=== PATIENT | female | born 1990 | race American Indian/Alaskan Native ===

== ENCOUNTER 2016-12-19 21:23 | Outpatient (CLI) | payer SELFPAY ==
[2016-12-19] MEDS ORDERED: LACTATED RINGERS 1,000 ML IV ONE (21:27)
[2016-12-19 21:47] VITALS: BP 97/59
[2016-12-19 22:12] LABS: Bilirubin,Urine NEG (Negative); Blood,Urine NEG (Negative); Ketones,Urine TR mg/dL (Negative); Leukocyte Esterase,Urine TR (Negative); Mucus,Urine 3+ /HPF; Nitrite,Urine NEG (Negative)
== END 2016-12-19 22:30 | disposition home or self-care (01) ==
LOC: TRG 21:23
PROVIDERS: ATTEND Obstetrics & Gynecology Gynecology
DX: O47.02 False labor before 37 completed weeks of gestation, second trimester (principal); Z3A.20 20 weeks gestation of pregnancy
CPT/HCPCS: 81001

== ENCOUNTER 2017-03-24 01:24 | Outpatient (CLI) | payer SELFPAY ==
[2017-03-24] MEDS ORDERED: LACTATED RINGERS 1,000 ML IV ONE (01:58)
[2017-03-24 03:12] LABS: Bacteria,Urine 2+ /HPF (Negative); Bilirubin,Urine NEG (Negative); Blood,Urine SM (Negative); Ketones,Urine 80 mg/dL (Negative); Leukocyte Esterase,Urine MOD (Negative); Mucus,Urine 3+ /HPF; Nitrite,Urine NEG (Negative); WBC,Urine > 182.0 /HPF (0.0-6.0)
[2017-03-24 03:18] VITALS: BP 97/55
[2017-03-24] MEDS ORDERED: TYLENOL PO ONE (03:43)
[2017-03-24 04:49] LABS: HIV-1 Antigen p24 Non React (Non React); HIVR-1/2 Ab Non React (Non React)
== END 2017-03-24 04:05 | disposition home or self-care (01) ==
LOC: TRG 01:24
PROVIDERS: ATTEND Obstetrics & Gynecology
DX: O47.03 False labor before 37 completed weeks of gestation, third trimester (principal); Z87.891 Personal history of nicotine dependence; Z3A.34 34 weeks gestation of pregnancy
CPT/HCPCS: 36415; 59025; 81001; 86592; 86706; 86762; 86803; 86850; 86900; 86901; 87806; 96360; J7120

== ENCOUNTER 2018-03-13 08:56 | Emergency (ER) | payer MEDICAID ==
[2018-03-13 09:03] VITALS: BP 92/57
[2018-03-13] MEDS ORDERED: TORADOL IM ONE (10:52)
--- NOTE | 2018-03-13 10:58 | Emergency Department Report ---
ED ENT HPI - General Chief complaint: Dental/Oral Stated complaint: TOOTH ACHE Time Seen by Provider: 03/13/18 10:16 Source: patient Mode of arrival: Ambulatory Limitations: No Limitations - History of Present Illness Initial comments: This is a 27-year-old male nontoxic, well nourished in appearance, no acute signs of distress presents to the ED with c/o of left upper toothache 3 weeks. Patient denies following up with a dentist. Patient stated that pain radiates from his job to his left side of head. Patient otherwise denies any head trauma. Patient describes toothache as aching level of 8 out of 10. Patient denies any facial swelling. Patient denies any numbness, tingling, fever, chills, headache, stiff neck, abdominal pain, chest pain, shortness of breath. Patient denies any drug allergies or significant past medical history. MD complaint: tooth pain -: week(s) (3) Location: tooth # 1 - pain here Severity: mild Severity scale (0 -10): 8 Quality: aching Consistency: constant Improves with: none Worsens with: none Context- Dental: history of dental caries, poor dental care Associated Symptoms: gum swelling, toothache. denies: fever, cough, pain with swallowing, sore throat, tinnitus, hearing loss, discharge from ear, rhinorrhea - Related Data Previous Rx's Medication Instructions Recorded Last Taken Type Pantoprazole Sodium [Protonix] 40 mg PO DAILY #30 tablet. 10/02/14 Unknown Rx Ciprofloxacin HCl [Ciprofloxacin 500 mg PO Q12H #4 tab 10/03/14 Unknown Rx TAB] Nitrofurantoin [place]/M-Cryst 100 mg PO Q12HR #14 capsule 12/19/16 Unknown Rx [Macrobid CAP] Acetaminophen/Codeine [Tylenol 1 tab PO Q6H PRN #12 tab 03/13/18 Unknown Rx /Codeine # 3 tab] Amoxicillin/K Clav Tab [Augmentin 1 tab PO Q12HR #20 tab 03/13/18 Unknown Rx 875 mg] Chlorhexidine Mouthwash [Peridex] 15 ml MM BID #1 bottle 03/13/18 Unknown Rx Ibuprofen [Motrin] 600 mg PO Q8H PRN #30 tablet 03/13/18 Unknown Rx Allergies Allergy/AdvReac Type Severity Reaction Status Date / Time No Known Allergies Allergy Verified 10/01/14 01:57 ED Dental HPI - General Chief complaint: Dental/Oral Stated complaint: TOOTH ACHE Time Seen by Provider: 03/13/18 10:16 Source: patient Mode of arrival: Ambulatory Limitations: No Limitations - Related Data Previous Rx's Medication Instructions Recorded Last Taken Type Pantoprazole Sodium [Protonix] 40 mg PO DAILY #30 tablet. 10/02/14 Unknown Rx Ciprofloxacin HCl [Ciprofloxacin 500 mg PO Q12H #4 tab 10/03/14 Unknown Rx TAB] Nitrofurantoin [place]/M-Cryst 100 mg PO Q12HR #14 capsule 12/19/16 Unknown Rx [Macrobid CAP] Acetaminophen/Codeine [Tylenol 1 tab PO Q6H PRN #12 tab 03/13/18 Unknown Rx /Codeine # 3 tab] Amoxicillin/K Clav Tab [Augmentin 1 tab PO Q12HR #20 tab 03/13/18 Unknown Rx 875 mg] Chlorhexidine Mouthwash [Peridex] 15 ml MM BID #1 bottle 03/13/18 Unknown Rx Ibuprofen [Motrin] 600 mg PO Q8H PRN #30 tablet 03/13/18 Unknown Rx Allergies Allergy/AdvReac Type Severity Reaction Status Date / Time No Known Allergies Allergy Verified 10/01/14 01:57 ED Review of Systems ROS: Stated complaint: TOOTH ACHE Other details as noted in HPI Constitutional: denies: chills, fever Eyes: denies: eye pain, eye discharge, vision change ENT: dental pain. denies: ear pain, throat pain Respiratory: denies: cough, shortness of breath, wheezing Cardiovascular: denies: chest pain, palpitations Endocrine: no symptoms reported Gastrointestinal: denies: abdominal pain, nausea, diarrhea Genitourinary: denies: urgency, dysuria, discharge Musculoskeletal: denies: back pain, joint swelling, arthralgia Skin: denies: rash, lesions Neurological: denies: headache, weakness, paresthesias Psychiatric: denies: anxiety, depression Hematological/Lymphatic: denies: easy bleeding, easy bruising ED Past Medical Hx - Past Medical History Hx Hypertension: No Hx Diabetes: No Hx Deep Vein Thrombosis: No Hx Renal Disease: No Hx Sickle Cell Disease: No Hx Seizures: No Hx Asthma: No Hx HIV: No Additional medical history: GI BLEED? - Social History Smoking Status: Current Every Day Smoker Substance Use Type: None - Medications Home Medications: Home Medications Medication Instructions Recorded Confirmed Last Taken Type Pantoprazole Sodium [Protonix] 40 mg PO DAILY #30 tablet. 10/02/14 Unknown Rx Ciprofloxacin HCl [Ciprofloxacin 500 mg PO Q12H #4 tab 10/03/14 Unknown Rx TAB] Nitrofurantoin [place]/M-Cryst 100 mg PO Q12HR #14 capsule 12/19/16 Unknown Rx [Macrobid CAP] Acetaminophen/Codeine [Tylenol 1 tab PO Q6H PRN #12 tab 03/13/18 Unknown Rx /Codeine # 3 tab] Amoxicillin/K Clav Tab [Augmentin 1 tab PO Q12HR #20 tab 03/13/18 Unknown Rx 875 mg] Chlorhexidine Mouthwash [Peridex] 15 ml MM BID #1 bottle 03/13/18 Unknown Rx Ibuprofen [Motrin] 600 mg PO Q8H PRN #30 tablet 03/13/18 Unknown Rx ED Physical Exam - General Limitations: No Limitations General appearance: alert, in no apparent distress - Head Head exam: Present: atraumatic, normocephalic - Eye Eye exam: Present: normal appearance Pupils: Present: normal accommodation - ENT ENT exam: Present: mucous membranes moist, TM's normal bilaterally, normal external ear exam - Expanded ENT Exam Expanded Ear exam: Present: normal external inspection Mouth exam: Present: normal external inspection, tongue normal. Absent: drooling, trismus, muffled voice, tongue elevation, laceration Teeth exam: Present: dental caries, fractured tooth #, dental tenderness #, gingival enlargement, other (no facial swelling) Throat exam: Positive: normal inspection, other (Uvula midline). Negative: tonsillar erythema, tonsillomegaly, tonsillar exudate, R peritonsillar mass, L peritonsillar mass - Neck Neck exam: Present: normal inspection, full ROM. Absent: tenderness, meningismus, lymphadenopathy - Respiratory Respiratory exam: Present: normal lung sounds bilaterally. Absent: respiratory distress - Cardiovascular Cardiovascular Exam: Present: regular rate, normal rhythm. Absent: systolic murmur, diastolic murmur, rubs, gallop - GI/Abdominal GI/Abdominal exam: Present: soft, normal bowel sounds - Extremities Exam Extremities exam: Present: normal inspection - Back Exam Back exam: Present: normal inspection - Neurological Exam Neurological exam: Present: alert, oriented X3 - Psychiatric Psychiatric exam: Present: normal affect, normal mood - Skin Skin exam: Present: warm, dry, intact, normal color. Absent: rash ED Course Vital Signs 03/13/18 09:00 Temperature 98.2 F Pulse Rate 84 Respiratory 16 Rate Blood Pressure 92/57 O2 Sat by Pulse 99 Oximetry - Reevaluation(s) Reevaluation #1: 03/13/18 11:06 Patient is speaking in full sentences with no signs of distress noted. Critical care attestation.: If time is entered above; I have spent that time in minutes in the direct care of this critically ill patient, excluding procedure time. ED Disposition Clinical Impression: Dental caries, Gingivitis Disposition: - TO HOME OR SELFCARE Is pt being admited?: No Does the pt Need Aspirin: No Condition: Stable Instructions: Dental Caries (ED), Gingivitis (ED), Acetaminophen/Codeine (By mouth) Additional Instructions: Follow-up with a dentist doctor in 3-5 days or if symptoms worsen and continue return to emergency room as soon as possible. Do not operate any machinery while taking Tylenol with codeine as this may cause drowsiness. Prescriptions: Acetaminophen/Codeine [Tylenol /Codeine # 3 tab] 1 tab PO Q6H PRN #12 tab PRN Reason: Pain , Severe (7-10) Amoxicillin/K Clav Tab [Augmentin 875 mg] 1 tab PO Q12HR #20 tab Chlorhexidine Mouthwash [Peridex] 15 ml MM BID #1 bottle Ibuprofen [Motrin] 600 mg PO Q8H PRN #30 tablet PRN Reason: Pain Referrals: PRIMARY CARE, [Primary Care Provider] - 3-5 Days PETERSON HUDSON MD [Staff Physician] - 3-5 Days [facility] [Outside] - 3-5 Days [facility] [Outside] - 3-5 Days Forms: Work/School Release Form(ED)
== END 2018-03-13 11:26 | disposition home or self-care (01) ==
LOC: ED 08:56
DX: K02.9 Dental caries, unspecified (principal); K05.10 Chronic gingivitis, plaque induced; F17.200 Nicotine dependence, unspecified, uncomplicated
CPT/HCPCS: 96372; 99281; J1885

== ENCOUNTER 2019-04-18 09:38 | Emergency (ER) | payer MEDICAID, OTHER ==
[2019-04-18 09:53] VITALS: BP 104/67
[2019-04-18] MEDS ORDERED: ZOFRAN ODT PO ONE (11:35)
[2019-04-18] MEDS ORDERED: NORCO 10/325 PO ONE (11:35)
--- NOTE | 2019-04-18 11:51 | Emergency Department Report ---
ED General Adult HPI - General Chief complaint: Dental/Oral Stated complaint: TOOTHACHE Time Seen by Provider: 04/18/19 11:21 Source: patient Mode of arrival: Ambulatory Limitations: No Limitations - History of Present Illness Initial comments: Patient complains of left upper molar pain 2 weeks. Patient states she has a dental appointment in June. Patient states the pain is worse at night and describes it as throbbing. Denies any issues with drinking or swallowing. -: Gradual Location: mouth Severity scale (0 -10): 8 Quality: other (throbbing) Consistency: constant Improves with: none Worsens with: none Associated Symptoms: denies other symptoms Treatments Prior to Arrival: none - Related Data Previous Rx's Medication Instructions Recorded Last Taken Type Pantoprazole Sodium [Protonix] 40 mg PO DAILY #30 tablet. 10/02/14 Unknown Rx Ciprofloxacin HCl [Ciprofloxacin 500 mg PO Q12H #4 tab 10/03/14 Unknown Rx TAB] Nitrofurantoin [place]/M-Cryst 100 mg PO Q12HR #14 capsule 12/19/16 Unknown Rx [Macrobid CAP] Acetaminophen/Codeine [Tylenol 1 tab PO Q6H PRN #12 tab 03/13/18 Unknown Rx /Codeine # 3 tab] Amoxicillin/K Clav Tab [Augmentin 1 tab PO Q12HR #20 tab 03/13/18 Unknown Rx 875 mg] Chlorhexidine Mouthwash [Peridex] 15 ml MM BID #1 bottle 03/13/18 Unknown Rx Ibuprofen [Motrin] 600 mg PO Q8H PRN #30 tablet 03/13/18 Unknown Rx Amoxicillin [Trimox CAP] 500 mg PO Q8H #21 capsule 04/18/19 Unknown Rx HYDROcodone/APAP 5-325 [[place] 1 each PO Q6HR PRN #12 tablet 04/18/19 Unknown Rx 5/325] traMADol [Ultram] 50 mg PO Q6HR PRN #24 tablet 04/18/19 Unknown Rx Allergies Allergy/AdvReac Type Severity Reaction Status Date / Time No Known Allergies Allergy Verified 10/01/14 01:57 ED Review of Systems ROS: Stated complaint: TOOTHACHE Other details as noted in HPI Constitutional: denies: chills, fever Eyes: denies: eye pain, eye discharge, vision change ENT: dental pain. denies: ear pain, throat pain Respiratory: denies: cough, shortness of breath, wheezing Cardiovascular: denies: chest pain, palpitations Endocrine: no symptoms reported Gastrointestinal: denies: abdominal pain, nausea, diarrhea Genitourinary: denies: urgency, dysuria, discharge Musculoskeletal: denies: back pain, joint swelling, arthralgia Skin: denies: rash, lesions Neurological: denies: headache, weakness, paresthesias Psychiatric: denies: anxiety, depression Hematological/Lymphatic: denies: easy bleeding, easy bruising ED Past Medical Hx - Past Medical History Hx Hypertension: No Hx Diabetes: No Hx Deep Vein Thrombosis: No Hx Renal Disease: No Hx Sickle Cell Disease: No Hx Seizures: No Hx Asthma: No Hx HIV: No Additional medical history: GI BLEED? - Surgical History Past Surgical History?: Yes Additional Surgical History: - Social History Smoking Status: Former Smoker Substance Use Type: None - Medications Home Medications: Home Medications Medication Instructions Recorded Confirmed Last Taken Type Pantoprazole Sodium [Protonix] 40 mg PO DAILY #30 tablet. 10/02/14 Unknown Rx Ciprofloxacin HCl [Ciprofloxacin 500 mg PO Q12H #4 tab 10/03/14 Unknown Rx TAB] Nitrofurantoin [place]/M-Cryst 100 mg PO Q12HR #14 capsule 12/19/16 Unknown Rx [Macrobid CAP] Acetaminophen/Codeine [Tylenol 1 tab PO Q6H PRN #12 tab 03/13/18 Unknown Rx /Codeine # 3 tab] Amoxicillin/K Clav Tab [Augmentin 1 tab PO Q12HR #20 tab 03/13/18 Unknown Rx 875 mg] Chlorhexidine Mouthwash [Peridex] 15 ml MM BID #1 bottle 03/13/18 Unknown Rx Ibuprofen [Motrin] 600 mg PO Q8H PRN #30 tablet 03/13/18 Unknown Rx Amoxicillin [Trimox CAP] 500 mg PO Q8H #21 capsule 04/18/19 Unknown Rx HYDROcodone/APAP 5-325 [[place] 1 each PO Q6HR PRN #12 tablet 04/18/19 Unknown Rx 5/325] traMADol [Ultram] 50 mg PO Q6HR PRN #24 tablet 04/18/19 Unknown Rx ED Physical Exam - General Limitations: No Limitations General appearance: alert, in no apparent distress - Head Head exam: Present: atraumatic, normocephalic - Eye Eye exam: Present: normal appearance, PERRL, EOMI - ENT ENT exam: Present: mucous membranes moist, other (Dr. Khan is soft tissue swelling of the upper molar left side) - Neck Neck exam: Present: normal inspection - Respiratory Respiratory exam: Present: normal lung sounds bilaterally. Absent: respiratory distress - Cardiovascular Cardiovascular Exam: Present: regular rate, normal rhythm. Absent: systolic murmur, diastolic murmur, rubs, gallop - GI/Abdominal GI/Abdominal exam: Present: soft, normal bowel sounds - Extremities Exam Extremities exam: Present: normal inspection - Back Exam Back exam: Present: normal inspection - Neurological Exam Neurological exam: Present: alert, oriented X3 - Psychiatric Psychiatric exam: Present: normal affect, normal mood - Skin Skin exam: Present: warm, dry, intact, normal color. Absent: rash ED Course Vital Signs 04/18/19 04/18/19 09:50 11:42 Temperature 98.5 F Pulse Rate 85 Respiratory 20 20 Rate Blood Pressure 104/67 O2 Sat by Pulse 100 Oximetry Critical care attestation.: If time is entered above; I have spent that time in minutes in the direct care of this critically ill patient, excluding procedure time. ED Disposition Clinical Impression: Odontalgia Disposition: DC- TO HOME OR SELFCARE Is pt being admited?: No Does the pt Need Aspirin: No Condition: Stable Instructions: Toothache (ED) Additional Instructions: return if worse Prescriptions: HYDROcodone/APAP 5-325 [[place] 5/325] 1 each PO Q6HR PRN #12 tablet PRN Reason: Pain Amoxicillin [Trimox CAP] 500 mg PO Q8H #21 capsule traMADol [Ultram] 50 mg PO Q6HR PRN #24 tablet PRN Reason: Pain Referrals: PRIMARY CARE,MD [Primary Care Provider] - 3-5 Days [facility] [Outside] - 3-5 Days Time of Disposition: 11:49
== END 2019-04-18 11:59 | disposition home or self-care (01) ==
LOC: ED 09:38
DX: K08.89 Other specified disorders of teeth and supporting structures (principal); Z87.891 Personal history of nicotine dependence; Z79.899 Other long term (current) drug therapy
CPT/HCPCS: Q0162

== ENCOUNTER 2019-10-27 12:17 | Emergency (ER) | payer SELFPAY ==
[2019-10-27 13:52] VITALS: BP 97/64
--- NOTE | 2019-10-27 13:58 | Emergency Department Report ---
Chief Complaint: Extremity Injury, Lower Stated Complaint: BODY PAIN Time Seen by Provider: 10/27/19 13:52 - HPI History of Present Illness: This is a 29 y.o. F. that presents to the ER with generalized body aches since yesterday. 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 Denies recent injury. States pain starts from neck down to toes. Took tylenol PM last night with no change in pain. Denies cough, fever, chills, coryza, rhinorrhea, swelling, redness, numbness or tingling, or weakness. - ROS Review of Systems: ROS: Stated complaint: myalgia Other details as noted in HPI Comment: All other systems reviewed and negative - Exam Vital Signs: Vital Signs 10/27/19 12:27 Temperature 98.9 F Pulse Rate 100 H Respiratory 20 Rate Blood Pressure 97/64 O2 Sat by Pulse 99 Oximetry Physical Exam: - General Limitations: No Limitations General appearance: alert, in no apparent distress - Head Head exam: Present: atraumatic, normocephalic - Eye Eye exam: Present: normal appearance - ENT ENT exam: Present: mucous membranes moist - Neck Neck exam: Present: normal inspection - Respiratory Respiratory exam: Present: normal lung sounds bilaterally. Absent: respiratory distress - Cardiovascular Cardiovascular Exam: Present: regular rate, normal rhythm. Absent: systolic murmur, diastolic murmur, rubs, gallop - GI/Abdominal GI/Abdominal exam: Present: soft, normal bowel sounds - Rectal Rectal exam: Present: deferred - Extremities Exam Extremities exam: Present: normal inspection, full ROM, tenderness (Mild tenderness to palpation of the right knee joint), joint swelling (Mild swelling), other (Warm to touch, mild erythematous.) - Back Exam Back exam: Present: normal inspection, full ROM - Neurological Exam Neurological exam: Present: alert, oriented X3, normal gait - Psychiatric Psychiatric exam: Present: normal affect, normal mood - Skin Skin exam: Present: warm, dry, intact, normal color. Absent: rash MSE screening note: Focused history and physical exam performed. Due to findings the following was ordered: ED Medical Decision Making - Medical Decision Making 29 y.o. female that presents with URI symptoms. Patient examined by me and stable. No distress noted. Vitals normal. Mild congestion on exam. Imaging and labs are deferred at this time. This is a nonemergent complaint. Patient instructed to take [id number] cold and flu medication and NSAIDs for pain. Discharged home stable with strict return instructions.. Encouraged to do supportive care for URI. Follow up with Primary Care Provider in 2-3 days. ED Disposition for MSE Disposition: MED SCREENING EXAM-LEFT Is pt being admited?: No Condition: Stable Additional Instructions: Take over the counter pain medication every 6-8 hours as needed for pain. Use ice or heat for 20 minutes on and up to 1 hour off. Follow up with a primary care doctor or return to the ER if symptoms are not relieved in 2-3 days of treatment. Referrals: [facility] [Outside] - 3-5 Days [facility] [Outside] - 3-5 Days [facility] [Outside] - 3-5 Days Forms: Work/School Release Form(ED) Time of Disposition: 13:58
== END 2019-10-27 14:49 | disposition left against medical advice (07) ==
LOC: ED 12:17
DX: M79.18 Myalgia, other site (principal)
CPT/HCPCS: 99281

== ENCOUNTER 2020-08-17 13:28 | Emergency (ER) | payer MEDICAID ==
[2020-08-17 13:35] VITALS: BP 108/72
--- NOTE | 2020-08-17 13:51 | Emergency Department Report ---
Chief Complaint: Extremity Problem,Nontraumatic Stated Complaint: LT HAND PAIN - HPI History of Present Illness: 30-year-old -Mal[place]ian female presents to the emergency room for 2 to 3- day history of nontraumatic left hand pain. Patient states that the pain is unbearable. 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 - Exam Vital Signs: Vital Signs 08/17/20 13:32 Temperature 98.2 F Pulse Rate 89 Respiratory 16 Rate Blood Pressure 108/72 O2 Sat by Pulse 100 Oximetry Physical Exam: Alert and oriented x3 in mild discomfort. No accessory muscles use Left hand full range of motion able to abduct fingers 2 through 5, no tendon rupture no swelling tenderness to touch at the third and fourth metacarpal. Ambulatory without difficulties MSE screening note: Focused history and physical exam performed. Due to findings the following was ordered: 30-year-old -Mal[place]ian female presents to the emergency room for 2 to 3- day history of nontraumatic left hand pain. Patient states that the pain is unbearable. 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 ED Disposition for MSE Disposition: Z-07 MED SCREENING EXAM-LEFT Is pt being admited?: No Does the pt Need Aspirin: No Condition: Stable Additional Instructions: Try Ibuprofen 600mg every 6-8 hours or Naproxen 220mg 2 tabs every 12 hours. F/U with a hand specialist. Referrals: Kurt Taveras [Other] - 2-3 Days Forms: Work/School Release Form(ED)
== END 2020-08-18 02:20 | disposition left against medical advice (07) ==
LOC: ED 13:28
DX: M25.542 Pain in joints of left hand (principal); Z53.21 Procedure and treatment not carried out due to patient leaving prior to being seen by health care provider

== ENCOUNTER 2020-11-12 00:51 | Emergency (ER) | payer MEDICAID ==
[2020-11-12 01:09] VITALS: BP 108/69
[2020-11-12] MEDS ORDERED: IBUPROFEN 800 MG TAB PO ONE (03:16)
--- NOTE | 2020-11-12 03:57 | Emergency Department Report ---
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 States she had similar problem 1 month ago. Pain is described at 4/10 aching and spasm. Symptoms are exacerbated by performing work duties. Symptoms are relieved by rest. There is no fever, chills, there is no laceration, abrasion, or bleeding. There is no obvious deformity. There is no weakness or paralysis. Patient denies fall injury or trauma ED Review of Systems ROS: Stated complaint: RIGHT HAND PAIN Other details as noted in HPI Constitutional: denies: chills, fever Eyes: denies: eye pain, eye discharge, vision change ENT: denies: ear pain, throat pain Respiratory: denies: cough, shortness of breath, SOB at rest, stridor, wheezing Cardiovascular: denies: chest pain, palpitations Endocrine: no symptoms reported. denies: see HPI, excessive sweating Gastrointestinal: denies: abdominal pain, nausea, vomiting, diarrhea Genitourinary: denies: urgency, dysuria, discharge Musculoskeletal: denies: as per HPI, back pain, joint swelling, arthralgia Skin: as per HPI Neurological: denies: headache, weakness, paresthesias Psychiatric: denies: anxiety, depression Hematological/Lymphatic: denies: easy bleeding, easy bruising ED Past Medical Hx - Past Medical History Hx Hypertension: No Hx Diabetes: No Hx Deep Vein Thrombosis: No Hx Renal Disease: No Hx Sickle Cell Disease: No Hx Seizures: No Hx Asthma: No Hx HIV: No Additional medical history: GI BLEED? - Surgical History Additional Surgical History: - Social History Smoking Status: Never Smoker Substance Use Type: None - Medications Home Medications: Home Medications Medication Instructions Recorded Confirmed Last Taken Type Pantoprazole Sodium [Protonix] 40 mg PO DAILY #30 tablet. 10/02/14 Unknown Rx Ciprofloxacin HCl [Ciprofloxacin 500 mg PO Q12H #4 tab 10/03/14 Unknown Rx TAB] Nitrofurantoin [place]/M-Cryst 100 mg PO Q12HR #14 capsule 12/19/16 Unknown Rx [Macrobid CAP] Acetaminophen/Codeine [Tylenol 1 tab PO Q6H PRN #12 tab 03/13/18 Unknown Rx /Codeine # 3 tab] Amoxicillin/K Clav Tab [Augmentin 1 tab PO Q12HR #20 tab 03/13/18 Unknown Rx 875 mg] Chlorhexidine Mouthwash [Peridex] 15 ml MM BID #1 bottle 03/13/18 Unknown Rx Ibuprofen [Motrin] 600 mg PO Q8H PRN #30 tablet 03/13/18 Unknown Rx Amoxicillin [Trimox CAP] 500 mg PO Q8H #21 capsule 04/18/19 Unknown Rx HYDROcodone/APAP 5-325 [[place] 1 each PO Q6HR PRN #12 tablet 04/18/19 Unknown Rx 5/325] traMADoL [Ultram] 50 mg PO Q6HR PRN #24 tablet 04/18/19 Unknown Rx Menthol/Camphor [Burgin Hurt 50 gm TP QID PRN #1 tube 11/12/20 Unknown Rx Ointment] Naproxen 500 mg PO BID PRN #30 tablet 11/12/20 Unknown Rx Upper Extremity Exam - Exam General: Vital signs noted. No distress. Alert and acting appropriately. Head and Torso: No HEENT Abnormality, No Neck Tenderness, No Chest/Lungs Abnormality, No Abdominal Tenderness, No Back Tenderness Shoulder Exam: Yes Normal Range of Motion in Shoulder, No Shoulder Tenderness, No Clavicle Tenderness, No Shoulder Deformity, No AC Joint Tenderness Arm Exam: No Arm/Humerus Tenderness, No Arm Deformity Elbow: No Elbow Tenderness, No Normal Range of Motion in Elbow, No Elbow Deformity Forearm: No Forearm Tenderness, No Forearm Deformity, No Pain with Pronation, No Pain with Supination Wrist: Yes Normal ROM in Wrist, No Wrist Tenderness, No Wrist Deformity, No Snuffbox Tenderness, No Pain with Axial Thumb Compression Hand: Yes Hand Tenderness (right dorsal hand peel ), Yes Normal ROM in Digit(s), No Hand Deformity, No Digit Tenderness, No Digit(s) Deformity, No Tendon Dysfunction CMS Exam: Yes Normal Distal Pulses, Yes Normal Capillary Refill, Yes Normal Distal Sensation ED Course Vital Signs 11/12/20 00:55 Temperature 98.4 F Pulse Rate 87 Respiratory 18 Rate Blood Pressure 108/69 O2 Sat by Pulse 100 Oximetry ED Medical Decision Making - Radiology Data Radiology results: report reviewed, image reviewed - Medical Decision Making Exam consistent with overuse injury 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 Plan NSAIDs as needed use, rice therapy, follow-up with Ortho in 2 to 3 days. Patient verbalizes agreement and understanding with discharge plan. Patient DC'd home in stable condition at this time. Critical care attestation.: If time is entered above; I have spent that time in minutes in the direct care of this critically ill patient, excluding procedure time. ED Disposition Clinical Impression: Overuse injury, Musculoskeletal pain of right upper extremity Disposition: DC-01 TO HOME OR SELFCARE Is pt being admited?: No Does the pt Need Aspirin: No Condition: Stable Instructions: How to Use Cold Therapy, Preventing Overuse Injuries, Adult Prescriptions: Naproxen 500 mg PO BID PRN #30 tablet PRN Reason: pain Menthol/Camphor [Burgin Hurt Ointment] 50 gm TP QID PRN #1 tube PRN Reason: pain Referrals: RUBEN FISH MD [Referring] - 3-5 Days Forms: Work/School Release Form(ED) Time of Disposition: 04:12
== END 2020-11-12 04:18 | disposition home or self-care (01) ==
LOC: ED 00:51
DX: M79.601 Pain in right arm (principal); Z98.890 Other specified postprocedural states; Z79.899 Other long term (current) drug therapy; X50.3XXA Overexertion from repetitive movements, initial encounter; Y93.89 Activity, other specified; Y92.89 Other specified places as the place of occurrence of the external cause; Y99.8 Other external cause status
CPT/HCPCS: 99282

== ENCOUNTER 2020-11-16 19:57 | Emergency (ER) | payer MEDICAID ==
[2020-11-16 20:46] VITALS: BP 132/84
--- NOTE | 2020-11-16 20:47 | Event Note ---
ED Screening Note ED Screening Note: 30-year-old [place] female [facility] emerge department complaining of severe sick pubic/pelvic pain of unknown etiology worse with standing up straight and palpation. Reports no vomiting, no diarrhea, no rectal bleeding, no constipation. No known history of any uterine fibroids and and does not report a current status. This initial assessment/diagnostic orders/clinical plan/treatment(s) is/are subject to change based on patients health status, clinical progression and re- assessment by fellow clinical providers in the ED. Further treatment and workup at subsequent clinical providers discretion. Patient/guardian urged not to elope from the ED as their condition may be serious if not clinically assessed and managed. Initial orders include: Labs. And evaluate for a CT of the abdomen versus ultrasound
[2020-11-16] MEDS ORDERED: ONDANSETRON 4 MG/2 ML INJ IV ONE (20:59)
[2020-11-16] MEDS ORDERED: MORPHINE 4 MG/1 ML INJ IV ONE (20:59)
[2020-11-16] MEDS ORDERED: SODIUM CHLORIDE 0.9% 1000 ML 1,000 ML IV ONE (21:00)
[2020-11-16 21:53] LABS: Basophils % (Auto) 0.5 % (0.0-1.8); Eosinophils # (Auto) 0.1 K/mm3 (0.0-0.4); Eosinophils % (Auto) 1.7 % (0.0-4.3); Hematocrit 38.5 % (30.3-42.9); Hemoglobin 13.2 gm/dl (10.1-14.3); Lymphocytes # (Auto) 1.8 K/mm3 (1.2-5.4); Lymphocytes % (Auto) 29.9 % (13.4-35.0); Mean Corpuscular HGB Conc 34 % (30-34); Mean Corpuscular Volume 89 fl (79-97); Monocytes # (Auto) 0.7 K/mm3 (0.0-0.8); Monocytes % (Auto) 11.5 % (0.0-7.3); Platelet Count 260 K/mm3 (140-440); Red Blood Count 4.31 M/mm3 (3.65-5.03); Red Cell Distribution Width 13.4 % (13.2-15.2)
[2020-11-16 21:58] LABS: BUN/Creatinine Ratio 14; Blood Urea Nitrogen 11 mg/dL (7-17); Calcium 8.2 mg/dL (8.4-10.2); Hemolysis Index 8
[2020-11-16 22:02] LABS: Alanine Aminotransferase 11 units/L (7-56); Albumin 3.7 g/dL (3.9-5); Bilirubin,Direct < 0.2 mg/dL (0-0.2)
--- NOTE | 2020-11-16 22:02 | Emergency Department Report ---
ED Abdominal Pain HPI - General Chief Complaint: Abdominal Pain Stated Complaint: BUTT AND ABDOMINAL PAIN Source: patient Mode of arrival: Ambulatory Limitations: No Limitations - History of Present Illness Initial Comments: Patient is a A0 30-year-old -Lith[place]ian female with no past medical history who presents to the ED with complaint of acute onset persistent severe pelvic pain that radiates to the rectal area and lower back for the last 8 hours. Patient states that the pain is constant, sharp and feels like someone is stabbing her in the pelvic area. Patient states that the last time he had sexual intercourse which was unprotected was 24 hours ago. Patient admits to having unprotected sexual intercourse regularly with her longtime boyfriend. Patient states that she is unable to lay down or sit down because of worsening pelvic pain. Patient denies nausea, vomiting, diarrhea, dysuria, urinary frequency and urgency, vaginal discharge, vaginal bleeding, chest pain or shortness of breath, dizziness, syncope, traumatic injury, fever and chills. MD Complaint: abdominal pain (severe suprapubic pain that radiates to the rectum and lower back) -: Sudden, hour(s) (8) Location: suprapubic Radiation: back (lower), other (rectum) Migration to: no migration Severity scale (0 -10): 10 Quality: aching, sharp Consistency: constant Improves With: nothing Worsens With: movement, other (Laying down supine) Associated Symptoms: denies other symptoms. denies: nausea, vomiting, diarrhea, fever, chills, constipation, dysuria, hematochezia, melena, hematuria, anorexia, syncope - Related Data LMP Date: 10/20/20 Previous Rx's Medication Instructions Recorded Last Taken Type Pantoprazole Sodium [Protonix] 40 mg PO DAILY #30 tablet. 10/02/14 Unknown Rx Ciprofloxacin HCl [Ciprofloxacin 500 mg PO Q12H #4 tab 10/03/14 Unknown Rx TAB] Nitrofurantoin Holmes/M-Cryst 100 mg PO Q12HR #14 capsule 12/19/16 Unknown Rx [Macrobid CAP] Acetaminophen/Codeine [Tylenol 1 tab PO Q6H PRN #12 tab 03/13/18 Unknown Rx /Codeine # 3 tab] Amoxicillin/K Clav Tab [Augmentin 1 tab PO Q12HR #20 tab 03/13/18 Unknown Rx 875 mg] Chlorhexidine Mouthwash [Peridex] 15 ml MM BID #1 bottle 03/13/18 Unknown Rx Ibuprofen [Motrin] 600 mg PO Q8H PRN #30 tablet 03/13/18 Unknown Rx Amoxicillin [Trimox CAP] 500 mg PO Q8H #21 capsule 04/18/19 Unknown Rx HYDROcodone/APAP 5-325 [[place] 1 each PO Q6HR PRN #12 tablet 04/18/19 Unknown Rx 5/325] traMADoL [Ultram] 50 mg PO Q6HR PRN #24 tablet 04/18/19 Unknown Rx Menthol/Camphor [[place] 50 gm TP QID PRN #1 tube 11/12/20 Unknown Rx Ointment] Naproxen 500 mg PO BID PRN #30 tablet 11/12/20 Unknown Rx Doxycycline Hyclate 100 mg PO Q12H #20 tablet.dr 11/17/20 Unknown Rx Ibuprofen [Motrin] 600 mg PO Q8H PRN #30 tablet 11/17/20 Unknown Rx Ondansetron [Zofran Odt] 4 mg PO Q8HR PRN #15 tab.rapdis 11/17/20 Unknown Rx metroNIDAZOLE [Flagyl] 500 mg PO Q12HR #20 tab 11/17/20 Unknown Rx traMADoL [Ultram 50 MG tab] 50 mg PO Q6HR PRN #12 tablet 11/17/20 Unknown Rx Allergies Allergy/AdvReac Type Severity Reaction Status Date / Time No Known Allergies Allergy Verified 10/27/19 12:21 ED Review of Systems ROS: Stated complaint: BUTT AND ABDOMINAL PAIN Other details as noted in HPI Constitutional: denies: chills, fever Eyes: denies: eye pain, eye discharge, vision change ENT: denies: ear pain, throat pain Respiratory: denies: cough, shortness of breath, wheezing Cardiovascular: denies: chest pain, palpitations Endocrine: no symptoms reported Gastrointestinal: abdominal pain (suprapubic). denies: nausea, vomiting, diarrhea, constipation, hematemesis, hematochezia Genitourinary: denies: urgency, dysuria, frequency, hematuria, discharge Musculoskeletal: back pain (lower back pain). denies: joint swelling, arthralgia Skin: denies: rash, lesions Neurological: denies: headache, weakness, paresthesias Psychiatric: denies: anxiety, depression Hematological/Lymphatic: denies: easy bleeding, easy bruising ED Past Medical Hx - Past Medical History Previous Medical History?: No Hx Hypertension: No Hx Diabetes: No Hx Deep Vein Thrombosis: No Hx Renal Disease: No Hx of Cancer: No Hx Sickle Cell Disease: No Hx Seizures: No Hx Asthma: No Hx HIV: No Additional medical history: GI BLEED? - Surgical History Additional Surgical History: - Social History Smoking Status: Never Smoker Substance Use Type: None - Medications Home Medications: Home Medications Medication Instructions Recorded Confirmed Last Taken Type Pantoprazole Sodium [Protonix] 40 mg PO DAILY #30 tablet. 10/02/14 Unknown Rx Ciprofloxacin HCl [Ciprofloxacin 500 mg PO Q12H #4 tab 10/03/14 Unknown Rx TAB] Nitrofurantoin Holmes/M-Cryst 100 mg PO Q12HR #14 capsule 12/19/16 Unknown Rx [Macrobid CAP] Acetaminophen/Codeine [Tylenol 1 tab PO Q6H PRN #12 tab 03/13/18 Unknown Rx /Codeine # 3 tab] Amoxicillin/K Clav Tab [Augmentin 1 tab PO Q12HR #20 tab 03/13/18 Unknown Rx 875 mg] Chlorhexidine Mouthwash [Peridex] 15 ml MM BID #1 bottle 03/13/18 Unknown Rx Ibuprofen [Motrin] 600 mg PO Q8H PRN #30 tablet 03/13/18 Unknown Rx Amoxicillin [Trimox CAP] 500 mg PO Q8H #21 capsule 04/18/19 Unknown Rx HYDROcodone/APAP 5-325 [[place] 1 each PO Q6HR PRN #12 tablet 04/18/19 Unknown Rx 5/325] traMADoL [Ultram] 50 mg PO Q6HR PRN #24 tablet 04/18/19 Unknown Rx Menthol/Camphor [[place] 50 gm TP QID PRN #1 tube 11/12/20 Unknown Rx Ointment] Naproxen 500 mg PO BID PRN #30 tablet 11/12/20 Unknown Rx Doxycycline Hyclate 100 mg PO Q12H #20 tablet. 11/17/20 Unknown Rx Ibuprofen [Motrin] 600 mg PO Q8H PRN #30 tablet 11/17/20 Unknown Rx Ondansetron [Zofran Odt] 4 mg PO Q8HR PRN #15 tab.rapdis 11/17/20 Unknown Rx metroNIDAZOLE [Flagyl] 500 mg PO Q12HR #20 tab 11/17/20 Unknown Rx traMADoL [Ultram 50 MG tab] 50 mg PO Q6HR PRN #12 tablet 11/17/20 Unknown Rx ED Physical Exam - General Limitations: No Limitations General appearance: alert, in no apparent distress - Head Head exam: Present: atraumatic, normocephalic, normal inspection - Eye Eye exam: Present: normal appearance, PERRL, EOMI Pupils: Present: normal accommodation - ENT ENT exam: Present: normal exam, normal orophraynx, mucous membranes moist, TM's normal bilaterally, normal external ear exam - Neck Neck exam: Present: normal inspection, full ROM - Respiratory Respiratory exam: Present: normal lung sounds bilaterally. Absent: respiratory distress, wheezes, rales, stridor, chest wall tenderness, accessory muscle use, decreased breath sounds - Cardiovascular Cardiovascular Exam: Present: normal rhythm, tachycardia, normal heart sounds. Absent: systolic murmur, diastolic murmur, rubs, gallop - GI/Abdominal GI/Abdominal exam: Present: soft, tenderness (suprapubic tenderness), guarding, normal bowel sounds. Absent: rebound, rigid, hyperactive bowel sounds, hypoactive bowel sounds, organomegaly - External exam: Present: normal external exam Speculum exam: Present: vaginal discharge (Mild yellowish-white discharge), cervical discharge Bi-manual exam: Present: cervical motion tendernes (With a positive chandelier sign), adnexal tenderness, uterine tenderness, other (Female RN passport application examiner Ms. Kelly present during the pelvic exam.) - Extremities Exam Extremities exam: Present: normal inspection, full ROM, normal capillary refill - Back Exam Back exam: Present: normal inspection, full ROM. Absent: tenderness, CVA tenderness (R), CVA tenderness (L), muscle spasm, paraspinal tenderness - Neurological Exam Neurological exam: Present: alert, oriented X3, CN II-XII intact, normal gait, reflexes normal - Psychiatric Psychiatric exam: Present: normal affect, normal mood - Skin Skin exam: Present: warm, dry, intact, normal color. Absent: rash ED Course Vital Signs 11/16/20 11/17/20 20:43 01:01 Temperature 99.1 F Pulse Rate 124 H 82 Respiratory 18 Rate Blood Pressure 132/84 O2 Sat by Pulse 97 Oximetry ED Medical Decision Making - Lab Data Result diagrams: 11/16/20 21:40 11/16/20 21:40 - Radiology Data Radiology results: report reviewed, image reviewed [address] [address] Ultrasound Report Signed Patient: JIMBO HO MR#: [id number] : 1990 Acct:[id number] Age/Sex: 30 / F ADM Date: 11/16/20 Loc: ED Attending Dr: Ordering Physician: GRANT LEWIS Date of Service: 11/16/20 Procedure(s): US pelvic complete Accession Number(s): [id number] cc: GRANT LEWIS US pelvic complete INDICATION / CLINICAL INFORMATION: Pelvic pain. COMPARISON: Current CT abdomen pelvis FINDINGS: Uterus appears unremarkable. Endometrial stripe measures 4 mm in thickness. Small endometrial calcifications are of questionable significance. Both ovaries are negative. Small amount of free fluid. Free fluid is actually less impressive than on CT and is relatively anechoic, so not indicative of hemorrhage or inflammation. IMPRESSION: 1. No evidence of active inflammatory change. Signer Name: Lefty Ryan MD Signed: 11/17/2020 12:18 AM Workstation Name: [id number] Transcribed By: TM Dictated By: Lefty Ryan MD Electronically Authenticated By: Lefty Ryan MD Signed Date/Time: 11/17/2017 DD/ TD/TT: [facility] [address] [place] [address] Cat Scan Report Signed Patient: JIMBO HO MR#: [id number] : 1990 Acct:[id number] Age/Sex: 30 / F ADM Date: 11/16/20 Loc: ED Attending Dr: Ordering Physician: GRANT LEWIS Date of Service: 11/16/20 Procedure(s): CT abdomen pelvis w con Accession Number(s): [id number] cc: GRANT LEWIS CT abdomen pelvis w con INDICATION: Abdominal pain - PELVIC PAIN. TECHNIQUE: All CT scans at this location are performed using CT dose reduction for ALARA by means of automated exposure control. COMPARISON: 10/01/2014 FINDINGS: Liver, gallbladder, spleen, pancreas, kidneys and adrenals are negative. Abdominal aorta is normal in size. No adenopathy. Pelvis Normal appendix. Urinary bladder and distal ureters are negative. Uterus appears negative; ovaries are not well evaluated. There is a small to moderate amount of free fluid in the dependent pelvis. No skeletal lesions. IMPRESSION: 1. Free fluid in the pelvis, more than usually seen with physiologic free fluid. The possibility of inflammatory process in the pelvis should be considered. Signer Name: Lefty Ryan MD Signed: 11/16/2020 11:56 PM Workstation Name: [id number] Transcribed By: TM Dictated By: Lefty Ryan MD Electronically Authenticated By: Lefty Ryan MD Signed Date/Time: 11/16/202355 DD/ 51 TD/TT: Print Cancel Print Cancel - Medical Decision Making This is a A0 30-year-old -Lithuanian female with no past medical history who presents to the ED with complaint of acute onset persistent severe pelvic pain that radiates to the rectal area and lower back for the last 8 hours. Patient states that the pain is constant, sharp and feels like someone is stabbing her in the pelvic area. Patient states that the last time he had sexual intercourse which was unprotected was 24 hours ago. Patient admits to having unprotected sexual intercourse regularly with her longtime boyfriend. Patient states that she is unable to lay down or sit down because of worsening pelvic pain. In the ED, patient is alert and oriented x3 and is not in distress but patient appears in significant pain, afebrile but tachycardic and crying during the physical exam. Pelvic exam in the presence of a female RN passport application examiner Ms. Kelly showed significant cervical motion tenderness with bilateral adnexal tenderness to palpation and trace yellowish-white vaginal discharge. Lab test results were reviewed and are all nonactionable. Pelvic ultrasound showed no acute inflammatory process. Wet prep test was positive for Bacterial vaginosis. Abdomen pelvis CT scan with contrast showed no acute abnormality, however, it showed free fluid in the pelvis, more than usually seen with physiologic free fluid. The possibility of inflammatory process in the pelvis should be considered. Patient was treated for pain in the ED and also given antiemetics normal saline 1 L IV bolus x1. Based on the pelvic exam findings which is consistent with a acute PID, patient was empirically treated with Rocephin and azithromycin in the ED for suspected acute PID. On reevaluation, patient's pain is well controlled medications. Patient was discharged home on pain medications and antibiotics for suspected acute PID and was given a referral to the [facility] physician Dr. Thompson for further evaluation and follow-up. Patient was advised return to the ED immediately if symptoms get worse. - Differential Diagnosis Acute PID; Ovarian cyst; UTI; ; Colitis/Proctitis; Fibroids Critical care attestation.: If time is entered above; I have spent that time in minutes in the direct care of this critically ill patient, excluding procedure time. ED Disposition Clinical Impression: Acute pelvic pain, female, Acute pelvic inflammatory disease (PID), Bacterial vaginosis Disposition: TO HOME OR SELFCARE Is pt being admited?: No Does the pt Need Aspirin: No Condition: Stable Instructions: Pelvic Pain, Female, [id number], Pelvic Inflammatory Disease, [id number], Abdominal Pain (ED), Bacterial Vaginosis (ED), Bacterial Vaginosis, [id number] Additional Instructions: All lab test results were reviewed and are all nonactionable. Pelvic ultrasound showed no acute abnormalities. Abdomen pelvis CT scan with contrast showed no acute abnormalities, however there was an incidental finding of an abnormality large amount of free fluid consistent with inflammatory process. Therefore your symptoms are likely due to acute pelvic inflammatory disease. Therefore take medications with food, drink plenty of fluids and follow-up with your [facility] p corriesiciradha Thompson as advised. Otherwise maintain a complete pelvic rest as you take the medications contact her office first thing today in the morning Tuesday, November 17, 2020 to schedule a follow-up appointment. Return to the ED immediately if symptoms get worse Prescriptions: Doxycycline Hyclate 100 mg PO Q12H #20 tablet.dr metroNIDAZOLE [Flagyl] 500 mg PO Q12HR #20 tab Ibuprofen [Motrin] 600 mg PO Q8H PRN #30 tablet PRN Reason: Pain traMADoL [Ultram 50 MG tab] 50 mg PO Q6HR PRN #12 tablet PRN Reason: Pain Ondansetron [Zofran Odt] 4 mg PO Q8HR PRN #15 tab.rapdis PRN Reason: Nausea Referrals: JOHNY THOMPSON MD [Staff Physician] - [facility] Forms: Work/School Release Form(ED), STI Treatment and Prevention Time of Disposition: 00:52 Print Language: LUXEMBOURGISH
[2020-11-16 23:55] LABS: Bacteria,Urine 4+ /HPF (Negative); Bilirubin,Urine NEG (Negative); Blood,Urine NEG (Negative); Color,Urine Yellow (Yellow); Mucus,Urine 2+ /HPF; Protein,Urine <15 mg/dL mg/dL (Negative); Sperm,Urine 1+ /HPF (NP)
[2020-11-16] MEDS ORDERED: AZITHROMYCIN 250 MG TAB PO ONE (23:59)
[2020-11-16] MEDS ORDERED: cefTRIAXone/NS 1 GM/50 ML 1 GM/50 ML BAG IV ONE (23:59)
[2020-11-17] MEDS ORDERED: ONDANSETRON 4 MG/2 ML INJ IV ONE
[2020-11-17] MEDS ORDERED: HYDROmorphone 1 MG/1 ML INJ IV ONE
--- NOTE | 2020-11-17 00:01 | Cat Scan Report ---
CT abdomen pelvis w con INDICATION: Abdominal pain - PELVIC PAIN. TECHNIQUE: All CT scans at this location are performed using CT dose reduction for ALARA by means of automated e xposure control. COMPARISON: 10/01/2014 FINDINGS: Liver, gallbladder, spleen, pancreas, kidneys and adrenals are negative. Abdominal aorta is normal in size. No adenopathy. Pelvis Normal appendix. Urinary bladder and distal ureters are negative. Uterus appears negative; ovaries are not well evaluated. There is a small to moderate amount of free fluid in the dependent pelvis. No skeletal lesions. IMPRESSION: 1. Free fluid in the pelvis, more than usually seen with physiologic free fluid. The possibility of i nflammatory process in the pelvis should be considered. Signer Name: Lefty Ryan MD Signed: 11/16/2020 11:56 PM Workstation Name: [id number]
--- NOTE | 2020-11-17 00:22 | Ultrasound Report ---
US pelvic complete INDICATION / CLINICAL INFORMATION: Pelvic pain. COMPARISON: Current CT abdomen pelvis FINDINGS: Uterus appears unremarkable. Endometrial stripe measures 4 mm in thickness. Small endometrial calcifi cations are of questionable significance. Both ovaries are negative. Small amount of free fluid. Free fluid is actually less impressive than on CT and is relatively anech oic, so not indicative of hemorrhage or inflammation. IMPRESSION: 1. No evidence of active inflammatory change. Signer Name: Lefty Ryan MD Signed: 11/17/2020 12:18 AM Workstation Name: [id number]
== END 2020-11-17 01:33 | disposition home or self-care (01) ==
LOC: ED 19:57
DX: N73.9 Female pelvic inflammatory disease, unspecified (principal); N76.0 Acute vaginitis; B96.89 Other specified bacterial agents as the cause of diseases classified elsewhere; Z79.899 Other long term (current) drug therapy
CPT/HCPCS: 36415; 74177; 76856; 80048; 80076; 81001; 83690; 84703; 85025; 87086; 87210; 87591; 96361; 96365; 96375; 96376; 99284; J0696; J1170; J2270; J2405; J7030; Q9967

== ENCOUNTER 2021-02-04 20:00 | Emergency (ER) | payer SELFPAY ==
[2021-02-04 22:09] VITALS: BP 125/76
--- NOTE | 2021-02-04 22:20 | XRay Report ---
RIGHT FOOT 3 VIEWS INDICATION / CLINICAL INFORMATION: PAIN S/P FALL. COMPARISON: None available. FINDINGS: No significant skeletal abnormality Signer Name: Connor Almonte MD FACR Signed: 02/04/2021 10:16 PM Workstation Name: [id number]
--- NOTE | 2021-02-04 22:21 | XRay Report ---
RIGHT FOREARM 2 VIEWS INDICATION / CLINICAL INFORMATION: PAIN S/P GLF. COMPARISON: None available. FINDINGS: No significant skeletal abnormality Signer Name: Connor Almonte MD FACR Signed: 02/04/2021 10:16 PM Workstation Name: [id number]
--- NOTE | 2021-02-04 23:46 | Emergency Department Report ---
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 Complaint: fall -: Sudden - Related Data Previous Rx's Medication Instructions Recorded Last Taken Type Pantoprazole Sodium [Protonix] 40 mg PO DAILY #30 tablet. 10/02/14 Unknown Rx Ciprofloxacin HCl [Ciprofloxacin 500 mg PO Q12H #4 tab 10/03/14 Unknown Rx TAB] Nitrofurantoin [place]/M-Cryst 100 mg PO Q12HR #14 capsule 12/19/16 Unknown Rx [Macrobid CAP] Acetaminophen/Codeine [Tylenol 1 tab PO Q6H PRN #12 tab 03/13/18 Unknown Rx /Codeine # 3 tab] Amoxicillin/K Clav Tab [Augmentin 1 tab PO Q12HR #20 tab 03/13/18 Unknown Rx 875 mg] Chlorhexidine Mouthwash [Peridex] 15 ml MM BID #1 bottle 03/13/18 Unknown Rx Ibuprofen [Motrin] 600 mg PO Q8H PRN #30 tablet 03/13/18 Unknown Rx Amoxicillin [Trimox CAP] 500 mg PO Q8H #21 capsule 04/18/19 Unknown Rx HYDROcodone/APAP 5-325 [[place] 1 each PO Q6HR PRN #12 tablet 04/18/19 Unknown Rx 5/325] traMADoL [Ultram] 50 mg PO Q6HR PRN #24 tablet 04/18/19 Unknown Rx Menthol/Camphor [[place] 50 gm TP QID PRN #1 tube 11/12/20 Unknown Rx Ointment] Naproxen 500 mg PO BID PRN #30 tablet 11/12/20 Unknown Rx Doxycycline Hyclate 100 mg PO Q12H #20 tablet. 11/17/20 Unknown Rx Ibuprofen [Motrin] 600 mg PO Q8H PRN #30 tablet 11/17/20 Unknown Rx Ondansetron [Zofran Odt] 4 mg PO Q8HR PRN #15 tab.rapdis 11/17/20 Unknown Rx metroNIDAZOLE [Flagyl] 500 mg PO Q12HR #20 tab 11/17/20 Unknown Rx traMADoL [Ultram 50 MG tab] 50 mg PO Q6HR PRN #12 tablet 11/17/20 Unknown Rx Ketorolac [Toradol] 10 mg PO Q6H PRN #14 tablet 02/04/21 Unknown Rx traMADoL [Ultram] 50 mg PO Q6HR PRN #14 tablet 02/04/21 Unknown Rx Allergies Allergy/AdvReac Type Severity Reaction Status Date / Time No Known Allergies Allergy Verified 10/27/19 12:21 ED Review of Systems ROS: Stated complaint: FALL/ANKLE/ARM INJURY Other details as noted in HPI Comment: All other systems reviewed and negative Constitutional: denies: chills, fever Eyes: denies: eye pain, eye discharge, vision change ENT: denies: ear pain, throat pain Respiratory: denies: cough, shortness of breath, wheezing Cardiovascular: denies: chest pain, palpitations Endocrine: no symptoms reported Gastrointestinal: denies: abdominal pain, nausea, diarrhea Genitourinary: denies: urgency, dysuria, discharge Musculoskeletal: denies: back pain, joint swelling, arthralgia Skin: denies: rash, lesions Neurological: denies: headache, weakness, paresthesias Psychiatric: denies: anxiety, depression Hematological/Lymphatic: denies: easy bleeding, easy bruising ED Past Medical Hx - Past Medical History Hx Hypertension: No Hx Diabetes: No Hx Deep Vein Thrombosis: No Hx Renal Disease: No Hx Sickle Cell Disease: No Hx Seizures: No Hx Asthma: No Hx HIV: No Additional medical history: GI BLEED? - Surgical History Past Surgical History?: No Additional Surgical History: - Social History Smoking Status: Current Every Day Smoker Substance Use Type: Alcohol - Medications Home Medications: Home Medications Medication Instructions Recorded Confirmed Last Taken Type Pantoprazole Sodium [Protonix] 40 mg PO DAILY #30 tablet. 10/02/14 Unknown Rx Ciprofloxacin HCl [Ciprofloxacin 500 mg PO Q12H #4 tab 10/03/14 Unknown Rx TAB] Nitrofurantoin [place]/M-Cryst 100 mg PO Q12HR #14 capsule 12/19/16 Unknown Rx [Macrobid CAP] Acetaminophen/Codeine [Tylenol 1 tab PO Q6H PRN #12 tab 03/13/18 Unknown Rx /Codeine # 3 tab] Amoxicillin/K Clav Tab [Augmentin 1 tab PO Q12HR #20 tab 03/13/18 Unknown Rx 875 mg] Chlorhexidine Mouthwash [Peridex] 15 ml MM BID #1 bottle 03/13/18 Unknown Rx Ibuprofen [Motrin] 600 mg PO Q8H PRN #30 tablet 03/13/18 Unknown Rx Amoxicillin [Trimox CAP] 500 mg PO Q8H #21 capsule 04/18/19 Unknown Rx HYDROcodone/APAP 5-325 [[place] 1 each PO Q6HR PRN #12 tablet 04/18/19 Unknown Rx 5/325] traMADoL [Ultram] 50 mg PO Q6HR PRN #24 tablet 04/18/19 Unknown Rx Menthol/Camphor [[place] 50 gm TP QID PRN #1 tube 11/12/20 Unknown Rx Ointment] Naproxen 500 mg PO BID PRN #30 tablet 11/12/20 Unknown Rx Doxycycline Hyclate 100 mg PO Q12H #20 tablet.dr 11/17/20 Unknown Rx Ibuprofen [Motrin] 600 mg PO Q8H PRN #30 tablet 11/17/20 Unknown Rx Ondansetron [Zofran Odt] 4 mg PO Q8HR PRN #15 tab.rapdis 11/17/20 Unknown Rx metroNIDAZOLE [Flagyl] 500 mg PO Q12HR #20 tab 11/17/20 Unknown Rx traMADoL [Ultram 50 MG tab] 50 mg PO Q6HR PRN #12 tablet 11/17/20 Unknown Rx Ketorolac [Toradol] 10 mg PO Q6H PRN #14 tablet 02/04/21 Unknown Rx traMADoL [Ultram] 50 mg PO Q6HR PRN #14 tablet 02/04/21 Unknown Rx ED Physical Exam - General Limitations: No Limitations General appearance: alert, in no apparent distress - Head Head exam: Present: atraumatic, normocephalic - Eye Eye exam: Present: normal appearance - ENT ENT exam: Present: mucous membranes moist - Neck Neck exam: Present: normal inspection - Respiratory Respiratory exam: Present: normal lung sounds bilaterally. Absent: respiratory distress - Cardiovascular Cardiovascular Exam: Present: regular rate, normal rhythm. Absent: systolic murmur, diastolic murmur, rubs, gallop - GI/Abdominal GI/Abdominal exam: Present: soft, normal bowel sounds - Extremities Exam Extremities exam: Present: normal inspection, tenderness (To the right forearm region with with palpation for range of motion noted pulses 2+ capillary refills are brisk. No ecchymosis noted no abrasion. To the right ankle. Drawer test is negative. Pulses 2+ to the dorsalis pedis and posterior tibialis. There is tenderness to the medial malleoli regio) - Back Exam Back exam: Present: normal inspection - Neurological Exam Neurological exam: Present: alert, oriented X3 - Psychiatric Psychiatric exam: Present: normal affect, normal mood - Skin Skin exam: Present: warm, dry, intact, normal color. Absent: rash ED Course Vital Signs 02/04/21 21:42 Temperature 98.1 F Pulse Rate 88 Respiratory 18 Rate Blood Pressure 125/76 O2 Sat by Pulse 98 Oximetry Critical care attestation.: If time is entered above; I have spent that time in minutes in the direct care of this critically ill patient, excluding procedure time. ED Disposition Clinical Impression: Contusion of right foot, Fall, Strain of right forearm Disposition: DC-01 TO HOME OR SELFCARE Is pt being admited?: No Does the pt Need Aspirin: No Condition: Stable Instructions: Foot Contusion, [id number]-ie-[id number], Muscle Strain, Ycyr-eb-Yhog, How to Use Cold Therapy, [id number], How to Use Cold Therapy, Preventing Injuries During Prescriptions: Ketorolac [Toradol] 10 mg PO Q6H PRN #14 tablet PRN Reason: Pain traMADoL [Ultram] 50 mg PO Q6HR PRN #14 tablet PRN Reason: Pain Referrals: [facility] [Provider Group] - 3-5 Days TREVON WHITAKER MD [Staff Physician] - 3-5 Days
== END 2021-02-05 00:08 | disposition home or self-care (01) ==
LOC: ED 20:00
DX: S56.811A Strain of other muscles, fascia and tendons at forearm level, right arm, initial encounter (principal); S90.31XA Contusion of right foot, initial encounter; F17.200 Nicotine dependence, unspecified, uncomplicated; Z98.890 Other specified postprocedural states; Z79.899 Other long term (current) drug therapy; Z72.89 Other problems related to lifestyle; W18.39XA Other fall on same level, initial encounter; Y93.89 Activity, other specified; Y92.89 Other specified places as the place of occurrence of the external cause; Y99.8 Other external cause status
CPT/HCPCS: 99283

== ENCOUNTER 2021-08-26 14:52 | Emergency (ER) | payer MEDICAID ==
[2021-08-26] MEDS ORDERED: HYDROcodone/ACETAMINOPHEN 5-325 MG TAB PO ONE (17:29)
[2021-08-26] MEDS ORDERED: KETOROLAC 30 MG/1 ML INJ IV ONE (17:29)
--- NOTE | 2021-08-26 17:32 | Emergency Department Report ---
- General Chief Complaint: Headache Stated Complaint: HEADACHE, BODY ACHE Source: patient Mode of arrival: Ambulatory Limitations: No Limitations - History of Present Illness Initial Comments: 31-year-old female who reports a history of tobacco use presents to the ER today with complaints of flulike symptoms. Patient states that yesterday she started with body aches. She states that she took Tylenol and felt a little better but this morning when she woke up, her pain was worse, she felt like she had "fire all over her body" including pain in her chest. She states that she has had a mild cough, runny nose, nasal congestion and a sore throat. She has not had any fever or chills at home. She reports no shortness of breath, wheezing, nausea or vomiting, abdominal pain or UTI symptoms. She denies any known ill contacts. She denies any recent travel. She has not taken any of the COVID-19 vaccines. She has not taken a COVID-19 test since she has been sick. She states that she is unsure of her last menstrual cycle due to her Implanon she has irregular menstrual cycles. She denies any significant past medical history. MD Complaint: cough, sore throat, rhinorrhea, nasal congestion, other (Generalized body aches; Chest discomfort) -: days(s) (1) - Related Data Previous Rx's Medication Instructions Recorded Last Taken Type Pantoprazole Sodium [Protonix] 40 mg PO DAILY #30 tablet. 10/02/14 Unknown Rx Ciprofloxacin HCl [Ciprofloxacin 500 mg PO Q12H #4 tab 10/03/14 Unknown Rx TAB] Nitrofurantoin [place]/M-Cryst 100 mg PO Q12HR #14 capsule 12/19/16 Unknown Rx [Macrobid CAP] Amoxicillin/K Clav Tab [Augmentin 1 tab PO Q12HR #20 tab 03/13/18 Unknown Rx 875 mg] Chlorhexidine Mouthwash [Peridex] 15 ml MM BID #1 bottle 03/13/18 Unknown Rx Ibuprofen [Motrin] 600 mg PO Q8H PRN #30 tablet 03/13/18 Unknown Rx Amoxicillin [Trimox CAP] 500 mg PO Q8H #21 capsule 04/18/19 Unknown Rx HYDROcodone/APAP 5-325 [[place] 1 each PO Q6HR PRN #12 tablet 04/18/19 Unknown Rx 5/325] traMADoL [Ultram] 50 mg PO Q6HR PRN #24 tablet 04/18/19 Unknown Rx Menthol/Camphor [[place] 50 gm TP QID PRN #1 tube 11/12/20 Unknown Rx Ointment] Naproxen 500 mg PO BID PRN #30 tablet 11/12/20 Unknown Rx Doxycycline Hyclate 100 mg PO Q12H #20 tablet. 11/17/20 Unknown Rx Ondansetron [Zofran Odt] 4 mg PO Q8HR PRN #15 tab.rapdis 11/17/20 Unknown Rx metroNIDAZOLE [Flagyl] 500 mg PO Q12HR #20 tab 11/17/20 Unknown Rx traMADoL [Ultram 50 MG tab] 50 mg PO Q6HR PRN #12 tablet 11/17/20 Unknown Rx Ketorolac [Toradol] 10 mg PO Q6H PRN #14 tablet 02/04/21 Unknown Rx traMADoL [Ultram] 50 mg PO Q6HR PRN #14 tablet 02/04/21 Unknown Rx Acetaminophen/Codeine [Tylenol 1 tab PO Q6H PRN #12 tab 08/26/21 Unknown Rx /Codeine # 3 tab] Ibuprofen [Motrin 600 MG tab] 600 mg PO Q8H PRN #30 tablet 08/26/21 Unknown Rx Allergies Allergy/AdvReac Type Severity Reaction Status Date / Time No Known Allergies Allergy Verified 10/27/19 12:21 ED Review of Systems ROS: Stated complaint: HEADACHE, BODY ACHE Other details as noted in HPI Constitutional: denies: chills, fever ENT: throat pain, congestion, other (rhinorrhea) Respiratory: cough. denies: shortness of breath, SOB with exertion, SOB at rest, wheezing Cardiovascular: chest pain. denies: palpitations, dyspnea on exertion, edema, syncope, paroxysmal nocturnal dyspnea Gastrointestinal: denies: abdominal pain, nausea, diarrhea, constipation, hematemesis, melena, hematochezia Genitourinary: denies: as per HPI, urgency, dysuria, frequency, hematuria, discharge, abnormal menses, dyspareunia Musculoskeletal: myalgia Skin: denies: rash, lesions, change in color, change in hair/nails, pruritus Neurological: denies: headache, weakness, numbness, paresthesias, confusion, abnormal gait, vertigo Psychiatric: denies: anxiety, depression, auditory hallucinations, visual hallucinations, homicidal thoughts, suicidal thoughts Hematological/Lymphatic: denies: easy bleeding, easy bruising, swollen glands ED Past Medical Hx - Past Medical History Hx Hypertension: No Hx Diabetes: No Hx Deep Vein Thrombosis: No Hx Renal Disease: No Hx Sickle Cell Disease: No Hx Seizures: No Hx Asthma: No Hx HIV: No Additional medical history: GI BLEED? - Surgical History Additional Surgical History: - Social History Smoking Status: Current Every Day Smoker Substance Use Type: Alcohol - Medications Home Medications: Home Medications Medication Instructions Recorded Confirmed Last Taken Type Pantoprazole Sodium [Protonix] 40 mg PO DAILY #30 tablet. 10/02/14 Unknown Rx Ciprofloxacin HCl [Ciprofloxacin 500 mg PO Q12H #4 tab 10/03/14 Unknown Rx TAB] Nitrofurantoin [place]/M-Cryst 100 mg PO Q12HR #14 capsule 12/19/16 Unknown Rx [Macrobid CAP] Amoxicillin/K Clav Tab [Augmentin 1 tab PO Q12HR #20 tab 03/13/18 Unknown Rx 875 mg] Chlorhexidine Mouthwash [Peridex] 15 ml MM BID #1 bottle 03/13/18 Unknown Rx Ibuprofen [Motrin] 600 mg PO Q8H PRN #30 tablet 03/13/18 Unknown Rx Amoxicillin [Trimox CAP] 500 mg PO Q8H #21 capsule 04/18/19 Unknown Rx HYDROcodone/APAP 5-325 [[place] 1 each PO Q6HR PRN #12 tablet 04/18/19 Unknown Rx 5/325] traMADoL [Ultram] 50 mg PO Q6HR PRN #24 tablet 04/18/19 Unknown Rx Menthol/Camphor [[place] 50 gm TP QID PRN #1 tube 11/12/20 Unknown Rx Ointment] Naproxen 500 mg PO BID PRN #30 tablet 11/12/20 Unknown Rx Doxycycline Hyclate 100 mg PO Q12H #20 tablet. 11/17/20 Unknown Rx Ondansetron [Zofran Odt] 4 mg PO Q8HR PRN #15 tab.rapdis 11/17/20 Unknown Rx metroNIDAZOLE [Flagyl] 500 mg PO Q12HR #20 tab 11/17/20 Unknown Rx traMADoL [Ultram 50 MG tab] 50 mg PO Q6HR PRN #12 tablet 11/17/20 Unknown Rx Ketorolac [Toradol] 10 mg PO Q6H PRN #14 tablet 02/04/21 Unknown Rx traMADoL [Ultram] 50 mg PO Q6HR PRN #14 tablet 02/04/21 Unknown Rx Acetaminophen/Codeine [Tylenol 1 tab PO Q6H PRN #12 tab 08/26/21 Unknown Rx /Codeine # 3 tab] Ibuprofen [Motrin 600 MG tab] 600 mg PO Q8H PRN #30 tablet 08/26/21 Unknown Rx ED Physical Exam - General Limitations: No Limitations General appearance: alert, anxious (Patient anxious and crying in the room), ob josué - Head Head exam: Present: atraumatic, normocephalic, normal inspection - Eye Eye exam: Present: normal appearance, PERRL, EOMI Pupils: Present: normal accommodation - ENT ENT exam: Present: normal exam, mucous membranes moist - Neck Neck exam: Present: normal inspection, full ROM. Absent: meningismus - Respiratory Respiratory exam: Present: normal lung sounds bilaterally. Absent: respiratory distress, wheezes, rales, rhonchi - Cardiovascular Cardiovascular Exam: Present: normal rhythm, tachycardia, normal heart sounds - GI/Abdominal GI/Abdominal exam: Present: soft. Absent: distended, tenderness, guarding, rebound - Extremities Exam Extremities exam: Present: normal inspection, full ROM, normal capillary refill. Absent: pedal edema, calf tenderness - Neurological Exam Neurological exam: Present: alert, oriented X3, CN II-XII intact, normal gait, reflexes normal. Absent: motor sensory deficit - Psychiatric Psychiatric exam: Present: normal affect, normal mood - Skin Skin exam: Present: intact ED Course Vital Signs 08/26/21 08/26/21 08/26/21 16:04 16:05 19:46 Temperature 100.4 F H 98.7 F Pulse Rate 101 H Respiratory 16 17 Rate Blood Pressure 123/80 112/72 O2 Sat by Pulse 99 98 Oximetry 08/26/21 20:09 Temperature 98.9 F Pulse Rate 90 Respiratory 16 Rate Blood Pressure O2 Sat by Pulse 98 Oximetry ED Medical Decision Making - Lab Data Result diagrams: 08/26/21 18:10 08/26/21 18:10 - EKG Data EKG shows normal: sinus rhythm Rate: tachycardia (117) - EKG Data Interpretation: normal EKG - Radiology Data Radiology results: report reviewed Patient: JIMBO HO MR#: [id number] : 1990 Acct:[id number] Age/Sex: 31 / F ADM Date: 08/26/21 Loc: ED Attending Dr: Ordering Physician: AMANDA CUELLO Date of Service: 08/26/21 Procedure(s): XR chest routine 2V Accession Number(s): [id number] cc: AMANDA CUELLO Fluoro Time In Minutes: CHEST 2 VIEWS INDICATION: Fever/cough/cp. COMPARISON: None. FINDINGS: Support devices: None. Heart: Within normal limits. Lungs/Pleura: No acute air space or interstitial disease. No significant pleural effusion. IMPRESSION: No acute findings. Signer Name: Darshan Porter MD Signed: 08/26/2021 7:45 PM Workstation Name: [id number] Transcribed By: ES Dictated By: Darshan Porter MD Electronically Authenticated By: Darshan Porter MD Signed Date/Time: 08/26/211944 DD/ 43 TD/TT: - Medical Decision Making Chest x-ray shows nothing acute. Labs unremarkable. EKG showed sinus tach with a heart rate of 111, but otherwise no ischemic changes or other abnormalities. Patient appears to have had calm down, and appears to be feeling better after medications. She is currently resting comfortably in the recliner, not in any acute pain or respiratory distress. She is currently not toxic or ill- appearing. She is neurologically intact with a normal gait. Her temperature and heart rate also have improved. I suspect her elevated heart rate was secondary to the fever and also she was anxious at the time of triage and during my H&P. Is not hypoxic, blood pressure is normal, and she is not tachypneic. Suspect patient symptoms are likely related to a viral illness. At this time I do not suspect PE, unstable angina, sepsis, meningitis, or any other emergent condition warranting further testing or admission at this time. Discussed all results with patient. I did recommend that she get an outpatient COVID-19 test as this could also be a cause of her symptoms. At this time treatment will be geared towards her symptoms. Discussed all results with patient. Discussed suspected diagnosis and treatment plan with patient. Patient expressed understanding of all instructions and agree with plan. Critical care attestation.: If time is entered above; I have spent that time in minutes in the direct care of this critically ill patient, excluding procedure time. ED Disposition Clinical Impression: Viral illness, Suspected COVID-19 virus infection, Anxiety reaction Disposition: HOME / SELF CARE / HOMELESS Is pt being admited?: No Does the pt Need Aspirin: No Condition: Stable Instructions: Viral Illness, Adult, Managing Anxiety, Adult Additional Instructions: I suspect your symptoms are related to a viral illness at this time. This could be related to the flu or even Covid. At this time there is no indication to admit you to the hospital. I do recommend that you get an outpatient COVID-19 test. Viruses typically have to run their course and treatment are typically geared toward symptoms. I recommend taking the ibuprofen as prescribed to help with any pain or fever. You can also alternate that with Tylenol. Drink lots of fluids. You can take [id number] cough cold medications to help your symptoms. Take a multivitamin containing vitamin C, zinc and vitamin D. I recommend that you purchase a thermometer, as well as a pulse ox monitor your temperatures as well as your oxygen levels. If your oxygen level is persistent ly under 93% and your worsening symptoms return immediately to the ER. Otherwise follow-up with your PCP. Prescriptions: Ibuprofen [Motrin 600 MG tab] 600 mg PO Q8H PRN #30 tablet PRN Reason: Pain Acetaminophen/Codeine [Tylenol /Codeine # 3 tab] 1 tab PO Q6H PRN #12 tab PRN Reason: Pain , Severe (7-10) Referrals: PRIMARY CARE, [Primary Care Provider] - 3-5 Days Time of Disposition: 19:55
[2021-08-26 18:40] LABS: Alanine Aminotransferase 13 units/L (7-56); Albumin 4.5 g/dL (3.9-5); Blood Urea Nitrogen 7 mg/dL (7-17); Calcium 9.3 mg/dL (8.4-10.2); Hemolysis Index 9
[2021-08-26 18:42] LABS: BUN/Creatinine Ratio 10
[2021-08-26 18:43] LABS: Basophils # (Auto) 0.1 K/mm3 (0.0-0.1); Basophils % (Auto) 0.7 % (0.0-1.8); Eosinophils # (Auto) 0.1 K/mm3 (0.0-0.4); Eosinophils % (Auto) 0.8 % (0.0-4.3); Hematocrit 40.2 % (30.3-42.9); Hemoglobin 13.4 gm/dl (10.1-14.3); Lymphocytes # (Auto) 0.4 K/mm3 (1.2-5.4); Lymphocytes % (Auto) 5.5 % (13.4-35.0); Mean Corpuscular HGB Conc 33 % (30-34); Mean Corpuscular Volume 88 fl (79-97); Monocytes # (Auto) 0.7 K/mm3 (0.0-0.8); Monocytes % (Auto) 9.7 % (0.0-7.3); Platelet Count 263 K/mm3 (140-440); Red Blood Count 4.58 M/mm3 (3.65-5.03); Red Cell Distribution Width 13.6 % (13.2-15.2)
[2021-08-26 19:49] VITALS: BP 112/72
--- NOTE | 2021-08-26 19:49 | XRay Report ---
CHEST 2 VIEWS INDICATION: Fever/cough/cp. COMPARISON: None. FINDINGS: Support devices: None. Heart: Within normal limits. Lungs/Pleura: No acute air space or interstitial disease. No significant pleural effusion. IMPRESSION: No acute findings. Signer Name: Darshan Porter MD Signed: 08/26/2021 7:45 PM Workstation Name: [id number]
--- NOTE | 2021-08-28 12:58 | Electrocardiograph Report ---
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
== END 2021-08-26 20:09 | disposition home or self-care (01) ==
LOC: ED 14:52
DX: B34.9 Viral infection, unspecified (principal); F41.1 Generalized anxiety disorder; F17.200 Nicotine dependence, unspecified, uncomplicated; Z20.822 Contact with and (suspected) exposure to COVID-19; Z98.890 Other specified postprocedural states
CPT/HCPCS: 36415; 71046; 80053; 84703; 85025; 93005; 96374; 99284; J1885

== ENCOUNTER 2021-11-02 15:49 | Emergency (ER) | payer MEDICAID ==
[2021-11-02 16:55] VITALS: BP 103/68
[2021-11-02] MEDS ORDERED: CYCLOBENZAPRINE 10 MG TAB PO ONE (18:42)
[2021-11-02] MEDS ORDERED: DEXAMETHASONE 4 MG TAB PO ONE (18:42)
[2021-11-02] MEDS ORDERED: KETOROLAC 10 MG TAB PO ONE (18:42)
--- NOTE | 2021-11-02 18:46 | Emergency Department Report ---
Upper Extremity - [facility] Chief Complaint: Extremity Injury, Upper Stated Complaint: RT SHOULDER/ELBOW/SWELLING X 2 DAYS Time Seen by Provider: 11/02/21 17:46 Upper Extremity: Right Shoulder, Right Elbow Occurred When: 3 Days Mechanism: Other (no injury) Severity: severe Symptoms: Yes Pain with Movement, Yes Limited Range of Movement, Yes Numbness, No Deformity, No Weakness, No Swelling, No Bruising/Ecchymosis, No Laceration or Abrasion Other History: 31 yof with a pmh of GERD presents to ed for evaluation of 3 day history of right shoulder and elbow pain. She denies injury but states that the pain started out of nowhere in her shoulder 3 days ago, she had some swelling to her elbow initially that has since resolved. She states that pain feels like a hard ache deep inside that radiates down from her shoulder to her elbow. She denies cp, sob, and hemoptysis. ED Review of Systems ROS: Stated complaint: RT SHOULDER/ELBOW/SWELLING X 2 DAYS Other details as noted in HPI Constitutional: denies: chills, diaphoresis, fever, malaise, weakness Eyes: denies: eye pain, eye discharge ENT: denies: ear pain, throat pain, dental pain, hearing loss, epistaxis, congestion Respiratory: denies: cough, shortness of breath, SOB with exertion, SOB at rest Cardiovascular: denies: chest pain, palpitations, dyspnea on exertion, orthopnea, edema, syncope, paroxysmal nocturnal dyspnea Endocrine: no symptoms reported Gastrointestinal: denies: abdominal pain, nausea, vomiting, diarrhea, constipation, hematemesis, melena, hematochezia Genitourinary: denies: urgency, dysuria, frequency Musculoskeletal: denies: back pain, joint swelling Skin: denies: rash, lesions, change in color Neurological: denies: headache, weakness, numbness, paresthesias, confusion, abnormal gait Psychiatric: denies: anxiety, depression, auditory hallucinations, visual hallucinations Hematological/Lymphatic: denies: easy bleeding, easy bruising ED Past Medical Hx - Past Medical History Hx Hypertension: No Hx Diabetes: No Hx Deep Vein Thrombosis: No Hx Renal Disease: No Hx Sickle Cell Disease: No Hx Seizures: No Hx Asthma: No Hx HIV: No Additional medical history: GI BLEED? - Surgical History Additional Surgical History: - Social History Smoking Status: Current Every Day Smoker Substance Use Type: Alcohol - Medications Home Medications: Home Medications Medication Instructions Recorded Confirmed Last Taken Type Pantoprazole Sodium [Protonix] 40 mg PO DAILY #30 tablet. 10/02/14 Unknown Rx Ciprofloxacin HCl [Ciprofloxacin 500 mg PO Q12H #4 tab 10/03/14 Unknown Rx TAB] Nitrofurantoin [place]/M-Cryst 100 mg PO Q12HR #14 capsule 12/19/16 Unknown Rx [Macrobid CAP] Amoxicillin/K Clav Tab [Augmentin 1 tab PO Q12HR #20 tab 03/13/18 Unknown Rx 875 mg] Chlorhexidine Mouthwash [Peridex] 15 ml MM BID #1 bottle 03/13/18 Unknown Rx Ibuprofen [Motrin] 600 mg PO Q8H PRN #30 tablet 03/13/18 Unknown Rx Amoxicillin [Trimox CAP] 500 mg PO Q8H #21 capsule 04/18/19 Unknown Rx HYDROcodone/APAP 5-325 [[place] 1 each PO Q6HR PRN #12 tablet 04/18/19 Unknown Rx 5/325] traMADoL [Ultram] 50 mg PO Q6HR PRN #24 tablet 04/18/19 Unknown Rx Menthol/Camphor [[place] 50 gm TP QID PRN #1 tube 11/12/20 Unknown Rx Ointment] Naproxen 500 mg PO BID PRN #30 tablet 11/12/20 Unknown Rx Doxycycline Hyclate 100 mg PO Q12H #20 tablet. 11/17/20 Unknown Rx Ondansetron [Zofran Odt] 4 mg PO Q8HR PRN #15 tab.rapdis 11/17/20 Unknown Rx metroNIDAZOLE [Flagyl] 500 mg PO Q12HR #20 tab 11/17/20 Unknown Rx traMADoL [Ultram 50 MG tab] 50 mg PO Q6HR PRN #12 tablet 11/17/20 Unknown Rx Ketorolac [Toradol] 10 mg PO Q6H PRN #14 tablet 02/04/21 Unknown Rx traMADoL [Ultram] 50 mg PO Q6HR PRN #14 tablet 02/04/21 Unknown Rx Acetaminophen/Codeine [Tylenol 1 tab PO Q6H PRN #12 tab 08/26/21 Unknown Rx /Codeine # 3 tab] Ibuprofen [Motrin 600 MG tab] 600 mg PO Q8H PRN #30 tablet 08/26/21 Unknown Rx Cyclobenzaprine [Flexeril] 10 mg PO TID PRN #21 tab 11/02/21 Unknown Rx Lidocaine [Lidoderm] 1 each TP DAILY #10 patch 11/02/21 Unknown Rx Naproxen [Naprosyn] 500 mg PO BID #14 tab 11/02/21 Unknown Rx methylPREDNISolone [Medrol 4MG 4 mg PO DAILY #1 pack 11/02/21 Unknown Rx DOSEPAK (21 tabs)] Upper Extremity Exam - Exam General: Vital signs noted. No distress. Alert and acting appropriately. Head and Torso: Yes Neck Tenderness (right side), No Abdominal Tenderness, No Back Tenderness Shoulder Exam: Yes Shoulder Tenderness (right only), No Clavicle Tenderness, No Normal Range of Motion in Shoulder, No Shoulder Deformity Arm Exam: No Arm/Humerus Tenderness, No Arm Deformity Elbow: Yes Elbow Tenderness (right only), No Normal Range of Motion in Elbow, No Elbow Deformity Forearm: No Forearm Tenderness, No Forearm Deformity, No Pain with Pronation, No Pain with Supination Wrist: Yes Normal ROM in Wrist, No Wrist Tenderness, No Wrist Deformity, No S nuffbox Tenderness, No Pain with Axial Thumb Compression Hand: Yes Normal ROM in Digit(s), No Hand Tenderness, No Hand Deformity, No Digit Tenderness, No Digit(s) Deformity, No Tendon Dysfunction CMS Exam: Yes Normal Distal Pulses, Yes Normal Capillary Refill, Yes Normal Distal Sensation, No Broken Skin ED Course Vital Signs 11/02/21 16:53 Temperature 98.2 F Pulse Rate 86 Respiratory 16 Rate Blood Pressure 103/68 [Left] O2 Sat by Pulse 100 Oximetry ED Medical Decision Making - Medical Decision Making 31 yof with a pmh of GERD presents to ed for evaluation of 3 day history of right shoulder and elbow pain. She denies injury but states that the pain started out of nowhere in her shoulder 3 days ago, she had some swelling to her elbow initially that has since resolved. She states that pain feels like a hard ache deep inside that radiates down from her shoulder to her elbow. She denies cp, sob, and hemoptysis. No swelling noted to RUE, no erythema, no warmth to touch, and patient denies cp, sob, and hemoptysis and no tachycardia noted, so low suspicion for PE/DVT. Patient noted to have pain to right neck, and pain is arm is worse when area where neck is painful is palpated. Neck and arm pain worse with certain movements. Exam and complaint consistent with cervical radicular pain, and patient will be treated with a 6 day course of steroids along with NSAIDs, muscle relaxants, and a lidoderm patch. She is advised to take medications as prescribed and follow up with pcp if no improvement or worsening symptoms. She verbalized understanding of and agreement with plan of care. Critical care attestation.: If time is entered above; I have spent that time in minutes in the direct care of this critically ill patient, excluding procedure time. ED Disposition Clinical Impression: Cervical radicular pain Disposition: HOME / SELF CARE / HOMELESS Is pt being admited?: No Does the pt Need Aspirin: No Condition: Stable Instructions: Cervical Radiculopathy, [id number] Additional Instructions: Take medications as prescribed. Follow-up with primary care provider if no improvement or worsening symptoms. Prescriptions: Cyclobenzaprine [Flexeril] 10 mg PO TID PRN #21 tab PRN Reason: Muscle Spasm Lidocaine [Lidoderm] 1 each TP DAILY #10 patch methylPREDNISolone [Medrol 4MG DOSEPAK (21 tabs)] 4 mg PO DAILY #1 pack Naproxen [Naprosyn] 500 mg PO BID #14 tab Referrals: KENIA MERINO MD [Referring] - 3-5 Days Time of Disposition: 18:45
== END 2021-11-02 19:38 | disposition home or self-care (01) ==
LOC: ED 15:49
DX: M54.12 Radiculopathy, cervical region (principal); F17.200 Nicotine dependence, unspecified, uncomplicated; F10.20 Alcohol dependence, uncomplicated
CPT/HCPCS: 99282; J8540

== ENCOUNTER 2022-04-02 10:02 | Emergency (ER) | payer MEDICAID ==
[2022-04-02] MEDS ORDERED: ACETAMINOPHEN W/CODEINE 300-30 MG TAB PO ONE (15:29)
[2022-04-02] MEDS ORDERED: KETOROLAC 10 MG TAB PO ONE (15:29)
[2022-04-02] MEDS ORDERED: dexAMETHasone 4 MG/ML VIAL IM ONE (15:29)
--- NOTE | 2022-04-02 16:14 | Emergency Department Report ---
ED Extremity Problem HPI - General Chief complaint: Extremity Problem,Nontraumatic Stated complaint: RT ELBOW PAIN Time Seen by Provider: 04/02/22 15:12 Source: patient Mode of arrival: Ambulatory Limitations: No Limitations - History of Present Illness Initial comments: 31-year-old black female with no past medical history presents to the emergency department for evaluation of right elbow pain. She states that about a month and a half ago she was diagnosed with tendinitis to her right elbow, she was treated with steroids and had resolution. She states that over the past week or so she has had increased pain to the area just like when she was initially diagnosed, was treated with naproxen but has not had any improvement. She states that pain at its worst is 8 out of 10 and worse with palpation or any movement of the area. She denies fever, drainage, or injury to the area. MD Complaint: extremity pain, extremity swelling -: Gradual, days(s) (5-6) Location: right, upper extremity (Elbow) History of Same: Yes -: No myalgia, No arthralgia, No fever, No associated dyspnea, No associated chest pain Severity scale (0 -10): 8 Quality: aching Consistency: constant Worsens with: palpation, other (Movement) Associated Symptoms: denies: chest pain, shortness of breath, fever, myalgias, arthralgias, rash - Related Data Previous Rx's Medication Instructions Recorded Last Taken Type Pantoprazole Sodium [Protonix] 40 mg PO DAILY #30 tablet. 10/02/14 Unknown Rx Ciprofloxacin HCl [Ciprofloxacin 500 mg PO Q12H #4 tab 10/03/14 Unknown Rx TAB] Nitrofurantoin [place]/M-Cryst 100 mg PO Q12HR #14 capsule 12/19/16 Unknown Rx [Macrobid CAP] Amoxicillin/K Clav Tab [Augmentin 1 tab PO Q12HR #20 tab 03/13/18 Unknown Rx 875 mg] Chlorhexidine Mouthwash [Peridex] 15 ml MM BID #1 bottle 03/13/18 Unknown Rx Ibuprofen [Motrin] 600 mg PO Q8H PRN #30 tablet 03/13/18 Unknown Rx Amoxicillin [Trimox CAP] 500 mg PO Q8H #21 capsule 04/18/19 Unknown Rx HYDROcodone/APAP 5-325 [[place] 1 each PO Q6HR PRN #12 tablet 04/18/19 Unknown Rx 5/325] traMADoL [Ultram] 50 mg PO Q6HR PRN #24 tablet 04/18/19 Unknown Rx Menthol/Camphor [[place] 50 gm TP QID PRN #1 tube 11/12/20 Unknown Rx Ointment] Naproxen 500 mg PO BID PRN #30 tablet 11/12/20 Unknown Rx Doxycycline Hyclate 100 mg PO Q12H #20 tablet. 11/17/20 Unknown Rx Ondansetron [Zofran Odt] 4 mg PO Q8HR PRN #15 tab.rapdis 11/17/20 Unknown Rx metroNIDAZOLE [Flagyl] 500 mg PO Q12HR #20 tab 11/17/20 Unknown Rx traMADoL [Ultram 50 MG tab] 50 mg PO Q6HR PRN #12 tablet 11/17/20 Unknown Rx Ketorolac [Toradol] 10 mg PO Q6H PRN #14 tablet 02/04/21 Unknown Rx traMADoL [Ultram] 50 mg PO Q6HR PRN #14 tablet 02/04/21 Unknown Rx Acetaminophen/Codeine [Tylenol 1 tab PO Q6H PRN #12 tab 08/26/21 Unknown Rx /Codeine # 3 tab] Ibuprofen [Motrin 600 MG tab] 600 mg PO Q8H PRN #30 tablet 08/26/21 Unknown Rx Cyclobenzaprine [Flexeril] 10 mg PO TID PRN #21 tab 11/02/21 Unknown Rx Lidocaine [Lidoderm] 1 each TP DAILY #10 patch 11/02/21 Unknown Rx Naproxen [Naprosyn] 500 mg PO BID #14 tab 11/02/21 Unknown Rx methylPREDNISolone [Medrol 4MG 4 mg PO DAILY #1 pack 11/02/21 Unknown Rx DOSEPAK (21 tabs)] Ketorolac [Toradol] 10 mg PO Q6H PRN #12 tab 04/02/22 Unknown Rx methylPREDNISolone [Medrol 4MG 4 mg PO DAILY #1 pack 04/02/22 Unknown Rx DOSEPAK (21 tabs)] Allergies Allergy/AdvReac Type Severity Reaction Status Date / Time No Known Allergies Allergy Verified 04/02/22 15:41 ED Review of Systems ROS: Stated complaint: RT ELBOW PAIN Other details as noted in HPI Comment: All other systems reviewed and negative Constitutional: denies: chills, fever Respiratory: denies: shortness of breath Cardiovascular: denies: chest pain, palpitations Gastrointestinal: denies: abdominal pain, nausea, vomiting Genitourinary: denies: urgency, dysuria Musculoskeletal: denies: back pain Neurological: denies: headache, weakness ED Past Medical Hx - Past Medical History Hx Hypertension: No Hx Diabetes: No Hx Deep Vein Thrombosis: No Hx Renal Disease: No Hx Sickle Cell Disease: No Hx Seizures: No Hx Asthma: No Hx HIV: No Additional medical history: GI BLEED? - Surgical History Additional Surgical History: - Social History Smoking Status: Current Every Day Smoker Substance Use Type: Alcohol - Medications Home Medications: Home Medications Medication Instructions Recorded Confirmed Last Taken Type Pantoprazole Sodium [Protonix] 40 mg PO DAILY #30 tablet. 10/02/14 Unknown Rx Ciprofloxacin HCl [Ciprofloxacin 500 mg PO Q12H #4 tab 10/03/14 Unknown Rx TAB] Nitrofurantoin [place]/M-Cryst 100 mg PO Q12HR #14 capsule 12/19/16 Unknown Rx [Macrobid CAP] Amoxicillin/K Clav Tab [Augmentin 1 tab PO Q12HR #20 tab 03/13/18 Unknown Rx 875 mg] Chlorhexidine Mouthwash [Peridex] 15 ml MM BID #1 bottle 03/13/18 Unknown Rx Ibuprofen [Motrin] 600 mg PO Q8H PRN #30 tablet 03/13/18 Unknown Rx Amoxicillin [Trimox CAP] 500 mg PO Q8H #21 capsule 04/18/19 Unknown Rx HYDROcodone/APAP 5-325 [[place] 1 each PO Q6HR PRN #12 tablet 04/18/19 Unknown Rx 5/325] traMADoL [Ultram] 50 mg PO Q6HR PRN #24 tablet 04/18/19 Unknown Rx Menthol/Camphor [[place] 50 gm TP QID PRN #1 tube 11/12/20 Unknown Rx Ointment] Naproxen 500 mg PO BID PRN #30 tablet 11/12/20 Unknown Rx Doxycycline Hyclate 100 mg PO Q12H #20 tablet. 11/17/20 Unknown Rx Ondansetron [Zofran Odt] 4 mg PO Q8HR PRN #15 tab.rapdis 11/17/20 Unknown Rx metroNIDAZOLE [Flagyl] 500 mg PO Q12HR #20 tab 11/17/20 Unknown Rx traMADoL [Ultram 50 MG tab] 50 mg PO Q6HR PRN #12 tablet 11/17/20 Unknown Rx Ketorolac [Toradol] 10 mg PO Q6H PRN #14 tablet 02/04/21 Unknown Rx traMADoL [Ultram] 50 mg PO Q6HR PRN #14 tablet 02/04/21 Unknown Rx Acetaminophen/Codeine [Tylenol 1 tab PO Q6H PRN #12 tab 08/26/21 Unknown Rx /Codeine # 3 tab] Ibuprofen [Motrin 600 MG tab] 600 mg PO Q8H PRN #30 tablet 08/26/21 Unknown Rx Cyclobenzaprine [Flexeril] 10 mg PO TID PRN #21 tab 11/02/21 Unknown Rx Lidocaine [Lidoderm] 1 each TP DAILY #10 patch 11/02/21 Unknown Rx Naproxen [Naprosyn] 500 mg PO BID #14 tab 11/02/21 Unknown Rx methylPREDNISolone [Medrol 4MG 4 mg PO DAILY #1 pack 11/02/21 Unknown Rx DOSEPAK (21 tabs)] Ketorolac [Toradol] 10 mg PO Q6H PRN #12 tab 04/02/22 Unknown Rx methylPREDNISolone [Medrol 4MG 4 mg PO DAILY #1 pack 04/02/22 Unknown Rx DOSEPAK (21 tabs)] ED Physical Exam - General Limitations: No Limitations General appearance: alert, in no apparent distress - Head Head exam: Present: atraumatic, normocephalic - Eye Eye exam: Present: normal appearance. Absent: conjunctival injection - Neck Neck exam: Present: normal inspection - Respiratory Respiratory exam: Absent: respiratory distress - Cardiovascular Cardiovascular Exam: Present: regular rate - GI/Abdominal GI/Abdominal exam: Absent: distended - Expanded Upper Extremity Exam Right Elbow exam: Present: tenderness, swelling, pain w/ pronation/supination, other (Pain to the palpation at the lateral epicondyle area). Absent: full ROM, abrasion, deformity, crepidus, dislocation, erythema, effusion, tenderness over radial head Vascular: Present: normal capillary refill, radial pulse. Absent: vascular compromise, Pallo - Back Exam Back exam: Present: normal inspection - Neurological Exam Neurological exam: Present: alert, oriented X3 - Psychiatric Psychiatric exam: Present: normal affect, normal mood - Skin Skin exam: Present: warm, dry, intact, normal color ED Course Vital Signs 04/02/22 11:22 Temperature 98.6 F Pulse Rate 74 Blood Pressure 115/65 [Left] Blood Pressure 115/65 [Right] O2 Sat by Pulse 100 Oximetry ED Medical Decision Making - Medical Decision Making 31-year-old black female with no past medical history presents to the emergency department for evaluation of right elbow pain. She states that about a month and a half ago she was diagnosed with tendinitis to her right elbow, she was treated with steroids and had resolution. She states that over the past week or so she has had increased pain to the area just like when she was initially diagnosed, was treated with naproxen but has not had any improvement. She states that pain at its worst is 8 out of 10 and worse with palpation or any movement of the area. She denies fever, drainage, or injury to the area. Symptoms and exam consistent with lateral epicondylitis. Patient will be d/mariangel home with medrol dose pack and toradol to use as directed and advised to follow up with orthopedics. She verbalizes understanding of and agreement with plan of care. Critical care attestation.: If time is entered above; I have spent that time in minutes in the direct care of this critically ill patient, excluding procedure time. ED Disposition Clinical Impression: Lateral epicondylitis of elbow Qualifiers: Laterality: right Qualified Code(s): M77.11 - Lateral epicondylitis, right elbow Disposition: 01 HOME / SELF CARE / HOMELESS Is pt being admited?: No Does the pt Need Aspirin: No Condition: Stable Instructions: Tennis Elbow, [id number], Tennis Elbow Rehab-SportsMed Additional Instructions: Take medications as prescribed. Follow-up with your primary care provider or orthopedics for further evaluation and management. Return to the emergency department as needed. Prescriptions: methylPREDNISolone [Medrol 4MG DOSEPAK (21 tabs)] 4 mg PO DAILY #1 pack Ketorolac [Toradol] 10 mg PO Q6H PRN #12 tab PRN Reason: Pain Referrals: TREVON WHITAKER MD [Staff Physician] - 3-5 Days Forms: Work/School Release Form(ED) Time of Disposition: 16:27
[2022-04-02 16:40] VITALS: BP 115/58
== END 2022-04-02 16:51 | disposition home or self-care (01) ==
LOC: ED 10:02
DX: M77.11 Lateral epicondylitis, right elbow (principal); F17.200 Nicotine dependence, unspecified, uncomplicated
CPT/HCPCS: 96372; 99282; J1100